=== PATIENT | male | born 1970 | race Caucasian/White ===

== ENCOUNTER → 2024-04-26 10:41 | Outpatient (REF) | payer OTHER, SELFPAY | LOC: RCS 10:41 | PROVIDERS: ATTENDING PHYSICIAN Internal Medicine Cardiovascular Disease; FAMILY PHYSICIAN Family Medicine | DX: R06.09 Other forms of dyspnea (principal) | CPT/HCPCS: 93306 ==

== ENCOUNTER → 2024-05-04 07:00 | Outpatient (REF) | payer OTHER, SELFPAY | LOC: DHCBC/DCA 07:00 | PROVIDERS: ATTENDING PHYSICIAN Internal Medicine Cardiovascular Disease; FAMILY PHYSICIAN Family Medicine | DX: R06.09 Other forms of dyspnea (principal); R07.89 Other chest pain; I34.1 Nonrheumatic mitral (valve) prolapse | CPT/HCPCS: 78452; 93017; A9500 ==

== ENCOUNTER → 2024-05-26 13:10 | Outpatient (REF) | payer OTHER, SELFPAY | LOC: RAD 13:10 | PROVIDERS: ATTENDING PHYSICIAN Internal Medicine Cardiovascular Disease; FAMILY PHYSICIAN Family Medicine | DX: I77.810 Thoracic aortic ectasia (principal); R10.84 Generalized abdominal pain | CPT/HCPCS: 71275; 74174; Q9967 ==

== ENCOUNTER → 2024-06-09 06:43 | Day surgery (SDC) | payer OTHER, SELFPAY ==
[2024-06-09 07:49] VITALS: BMI 26.5
[2024-06-09] MEDS: ELIQUIS 5 MG PO (08:08)
--- NOTE | 2024-06-09 09:21 | ITS.CL.CARDI ---
Aerodynamics Professor - Cardioversion
Cardioversion
Procedure Report:
Procedure: CLAIRE-guided electrical cardioversion
Pre-operative diagnosis: Persistent atrial fibrillation
Post-operative diagnosis: Persistent atrial fibrillation status post DC cardioversion to sinus rhythm
Anesthesia: MAC
Attending Physician: Arya Dsouza MD
Procedure Description: The patient was brought to the electrophysiology laboratory in the fasting state. Informed consent was obtained from the patient prior to the start of the procedure. Adherence to anticoagulation was confirmed. Electrodes were
placed on the patient and connected to an external defibrillator. Monitoring of blood pressure, ECG tracings, and pulse oximetry was initiated. The pads were applied to the patient in the anterior and posterior positions. The patient was sedated by
the anesthesiologist. A CLAIRE (reported separately) was performed prior to the cardioversion. No left atrial or left atrial appendage thrombus was seen. After the CLAIRE probe was removed, a 200 joule biphasic synchronized shock was delivered to the
patient under MAC anesthesia. Sinus rhythm was successfully restored. The patient recovered uneventfully from MAC anesthesia. There were no immediate post-procedure complications. The patient left the lab in good condition. The attending physician
was present throughout the entire procedure.
Impression: Successful CLAIRE-guided direct current cardioversion with pentecostal of sinus rhythm after one 200 joule biphasic synchronized shock.
== END ==
LOC: CATH 06:43
PROVIDERS: ATTENDING PHYSICIAN Internal Medicine Cardiovascular Disease; FAMILY PHYSICIAN Family Medicine; OTHER PHYSICIAN Internal Medicine Cardiovascular Disease
DX: I48.19 Other persistent atrial fibrillation (principal); R06.09 Other forms of dyspnea; E78.5 Hyperlipidemia, unspecified; Z87.891 Personal history of nicotine dependence; I08.8 Other rheumatic multiple valve diseases; I08.1 Rheumatic disorders of both mitral and tricuspid valves; Z79.01 Long term (current) use of anticoagulants
CPT/HCPCS: 93312; 93320; 93325; 92960; 93005

== ENCOUNTER → 2024-07-03 09:59 | Outpatient (REF) | payer OTHER, SELFPAY | LOC: RAD 09:59 | PROVIDERS: ATTENDING PHYSICIAN Internal Medicine Cardiovascular Disease; FAMILY PHYSICIAN Family Medicine | DX: R06.09 Other forms of dyspnea (principal); I77.810 Thoracic aortic ectasia; R07.89 Other chest pain | CPT/HCPCS: 75574; Q9967 ==

== ENCOUNTER 2025-01-08 07:23 | Day surgery (SDC) | payer OTHER, SELFPAY ==
[2025-01-08] MEDS: ELIQUIS 5 MG PO (08:17)
--- NOTE | 2025-01-08 18:47 | ITS.CL.CARDI ---
[employer] And Recausticizing Operator - Cardioversion
Cardioversion
Procedure Report:
Procedure: CLAIRE-guided electrical cardioversion
Pre-operative diagnosis: Persistent atrial fibrillation
Post-operative diagnosis: Persistent atrial fibrillation status post DC cardioversion to sinus rhythm
Anesthesia: MAC
Attending Physician: Jeannie Chapa DO [facility]
Procedure Description: The patient was brought to the electrophysiology laboratory in the fasting state. Informed consent was obtained from the patient prior to the start of the procedure. Electrodes were placed on the patient and connected to an
external defibrillator. Monitoring of blood pressure, ECG tracings, and pulse oximetry was initiated. The pads were applied to the patient in the anterior and posterior positions. The patient was sedated by the anesthesiologist. A CLAIRE (reported
separately) was performed prior to the cardioversion. No left atrial or left atrial appendage thrombus was seen. After the CLAIRE probe was removed, a 200 joule biphasic synchronized shock was delivered to the patient under MAC anesthesia. Sinus rhythm
was successfully restored. The patient recovered uneventfully from MAC anesthesia. There were no immediate post-procedure complications. The patient left the lab in good condition. The attending physician was present throughout the entire procedure.
Impression: Successful CLAIRE-guided direct current cardioversion with yazidi of sinus rhythm after one 200 joule biphasic synchronized shock. Continue uninterrupted Eliquis anticoagulation.
== END 2025-01-08 10:01 | disposition home or self-care (01) ==
LOC: CATH 07:23
PROVIDERS: ATTENDING PHYSICIAN Internal Medicine Cardiovascular Disease; FAMILY PHYSICIAN Family Medicine; OTHER PHYSICIAN Internal Medicine Cardiovascular Disease
DX: I48.19 Other persistent atrial fibrillation (principal); I08.1 Rheumatic disorders of both mitral and tricuspid valves; E78.5 Hyperlipidemia, unspecified; Z79.01 Long term (current) use of anticoagulants
CPT/HCPCS: 93312; 93320; 93325; 92960; 93005

== ENCOUNTER → 2025-01-29 13:56 | Outpatient (REF) | payer OTHER, SELFPAY | LOC: DHSLP 13:56 | PROVIDERS: ATTENDING PHYSICIAN Internal Medicine Cardiovascular Disease; FAMILY PHYSICIAN Family Medicine | DX: G47.33 Obstructive sleep apnea (adult) (pediatric) (principal) | CPT/HCPCS: 95800 ==

== ENCOUNTER 2025-06-20 10:22 | Day surgery (SDC) | payer OTHER, SELFPAY ==
[2025-06-14 09:01] VITALS: BMI 27.5
[2025-06-14 09:24] LABS: Hematocrit 43.5 % (39.0-52.0); Hemoglobin 15.1 g/dL (13.0-18.0); Mean Corp Hgb Conc. 34.7 g/dL (33.0-37.0); Mean Corpuscular Volume 89.5 fL (80.0-94.0); Nucleated Red Blood Cells % 0 % (-); Platelet Count 241 10^3/uL (130-400); Red Cell Dist. Width 12.6 % (11.5-14.5)
[2025-06-14 09:35] LABS: ALT (SGPT) 29 U/L (0-50); AST (SGOT) 24 U/L (17-59); Albumin 4.6 g/dl (3.5-5.0); Alkaline Phosphatase 56 U/L (38-126); Blood Urea Nitrogen 16 mg/dl (9-20); Calcium 9.7 mg/dl (8.4-10.2); Carbon Dioxide 25 mmol/L (22-30); Chloride 105 mmol/L (98-107); Estimated Creatinine Clearance 96 ml/min; Glucose 91 mg/dl (70-99); Magnesium 2.0 mg/dl (1.6-2.3); Potassium 4.5 mmol/L (3.5-5.1); Sodium 135 mmol/L (135-145); Total Protein 7.4 g/dl (6.3-8.2); eGFR > 60.00
[2025-06-14 09:47] LABS: INR 0.98; PT 13.5 Sec (11.4-14.6)
[2025-06-20] VITALS (10 sets, daily range): BP systolic 97–128; BP diastolic 55–87; BMI 26.0
[2025-06-20] MEDS: TYLENOL 1000 MG PO (11:39)
[2025-06-20 13:09] LABS: ACT-LR - POC 250 Seconds (116-155)
[2025-06-20 13:28] LABS: ACT-LR - POC 285 Seconds (116-155)
--- NOTE | 2025-06-20 14:58 | ITS.CL.ABL ---
Business Systems Developer - Ablation
Ablation
Procedure Report:
ELECTROPHYSIOLOGIC STUDY AND POSSIBLE ABLATION
DATE: June 20, 2025
Primary Care Provider: Dr Antonio High
Primary Die Cast Patternmaker: Dr Marichuy Patricia
INDICATION:
Symptomatic Atrial Fibrillation.
Paroxysmal
HISTORY: See H and P.
Symptomatic AF, poorly controlled with attempted medical therapy
HAS-BLED: 0
CHADSVASc: 1
HFmrEF
PRESENTING RHYTHM: SR
HISTORY: See H and P.
Symptomatic AF, poorly controlled with attempted medical therapy.
ANTICOAGULATION: Apixaban 5 mg twice daily
'TIME-OUT': called and confirmed.
SEDATION/ANESTHESIA: provided via the anesthesia department using general anesthesia.
PROCEDURE:
Ultrasound Guidance with real-time visualization of needle insertion and vessel patency performed by ny for femoral venous Vascular Access.
Under real-time US guidance, the needle was advanced with negative pressure into the vein. The needle was seen entering the vessel lumen with a good return of dark red flow, the syringe was removed, non-pulsatile, dark red blood low was noted and
the wire was passed without difficulty, then the needle was removed. US confirmed the wire was in the vein, not going into an artery,
Images were taken and saved for the patient's permanent record. Imaging findings typical femoral venous anatomy. Direct visualization of needle puncture into the femoral vein was observed and recorded.
A decapolar CS catheter was placed within the CS for mapping and pacing.
The intracardiac ultrasound catheter was positioned in the RA for continuous intracardiac ultrasound imaging.
Heparin bolus and infusion to target ACT at 300 -350 seconds was administered. Transseptal puncture was performed. This entailed advancing a sheath with dilator into the superior vena cava and withdrawing both (monitoring intracardiac ultrasound,
fluoroscopy and tip pressure) with the tip oriented toward the atrial septum. The fossa ovalis was engaged (indicated by sudden displacement of the sheath tip as well as tenting of the fossa seen on intracardiac ultrasound).
Transseptal puncture was performed. Left atrial catheter position was confirmed by echocardiographic imaging, pressure monitoring (LA mean pressure 3mm Hg) and fluoroscopy. The sheath was advanced over the dilator and positioned in the left atrium.
The Sphere 9 multipolar mapping/ablation Sphere-9 catheter was positioned through the transseptal sheath for high density mapping.
Geometry and voltage mapping was performed using the apprupt mapping system for three-dimensional electroanatomical mapping.
Catheter positioning was guided and confirmed using both I.C.E. and fluoroscopy.
High density electroanatomical three-dimensional mapping demonstrated four PVs: LSPV, LIPV, RSPV, RIPV.
Ablation strategy included PVI as well as mapping for extra PV contributors to atrial fibrillation which would also be targeted if present.
After accomplishing pulmonary venous isolation, mapping identified no additional areas likely to be extra PV contributors to atrial fibrillation.
Post ablation mapping finds entrance and exit block at each of the pulmonary veins (LSPV, LIPV, RSPV, RIPV).
Programmed electrostimulation including burst atrial pacing as well the delivery of decremental extrastimuli down to atrial effective refractory period and no sustained arrhythmias could be induced.
I.C.E. :
Pre-Ablation Post-Ablation
LVEF: 40-45 % 40-45 %
WMA: none none
Pericardial effusion: none none
LA Pressure (mmHg) 3 12
COMPLICATIONS:
none
SUMMARY:
- Mapping and ablation to isolate the PVs resulting in electrical isolation of the pulmonary veins
- 3-D Electroanatomical Mapping
- Intracardiac Ultrasound
- Ultrasound guidance for vascular access
Post ablation, I discussed today's findings and results with the patient's , Maricel.
RECOMMENDATIONS:
- Observe in monitored bed.
- Maintain oral anticoagulation.
- He will maintain apixaban 5 mg twice daily maintenance dosing for at least the next 2 months and thereafter there could be consideration to stopping oral anticoagulation.
- Office visit with Jennifer Cohen NP in 2 to 3 months.
Copy to:
Primary Care Provider: Dr Antonio High
Primary Die Cast Patternmaker: Dr Marichuy Patricia
--- NOTE | 2025-06-20 17:28 | W.PN.UPDATE ---
Update Note
Progress Note Update
Pt seen post PFA. Right groin site without ht/bleeding, non tender. Post EKG NSR 80s, no acute changes. [id number] and had been taking eliquis PRN. He will now take it twice a day post procedure until seen by Cardiology in 3 months. Home today
if groin site/tele remain stable.
== END 2025-06-20 18:30 | disposition home or self-care (01) ==
LOC: CATH 10:22
PROVIDERS: ATTENDING PHYSICIAN Internal Medicine Cardiovascular Disease; FAMILY PHYSICIAN Family Medicine; OTHER PHYSICIAN Internal Medicine Cardiovascular Disease
DX: I48.0 Paroxysmal atrial fibrillation (principal); I50.20 Unspecified systolic (congestive) heart failure; Z79.01 Long term (current) use of anticoagulants; I71.20 Thoracic aortic aneurysm, without rupture, unspecified
CPT/HCPCS: C1894; C1733; C1766; C1730; C1892; C1759; 36415; 75572; 80053; 83735; 85025; 85347; 85610; 86850; 86900; 86901; 93005; 93656; C1760; Q9967

== ENCOUNTER → 2025-07-12 06:59 | Outpatient (REF) | payer OTHER, SELFPAY | LOC: RCS 06:59 | PROVIDERS: ATTENDING PHYSICIAN Internal Medicine Cardiovascular Disease; FAMILY PHYSICIAN Family Medicine | DX: I48.0 Paroxysmal atrial fibrillation (principal); Z98.890 Other specified postprocedural states | CPT/HCPCS: 93306 ==